=== PATIENT | male | born 1965 | race African-American/Black ===

== ENCOUNTER 2023-12-16 10:53 | Outpatient (CLI) | payer OTHER, SELFPAY | END 2023-12-16 10:54 | disposition home or self-care (01) | LOC: ANHAUDIO 10:56 | PROVIDERS: PCP Otolaryngology; Visit Provider Otolaryngology | DX: H90.3 Sensorineural hearing loss, bilateral (principal) | CPT/HCPCS: 92557; 92567 ==

== ENCOUNTER 2025-01-20 09:00 | Outpatient (CLI) | payer OTHER, SELFPAY ==
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
--- OUTSIDE RECORDS SUMMARY | 2025-01-20 09:11 | XMS_ITS | Encounter Summary ---
Author Organization [facility] Address [address] [place] [address] Care Team Providers Care Dramatic Coach Name Role Phone Irwin Gonzalez MD Primary Care Provider [phone] Encounter Details Date Type Department Care Team (Late st Contact Info) Description 01/30/2023 Telephone [facility] - Neurology [address] [place] [address], Count Includes [facility] [address] Gary Sanchez, EMERGENCY ROOM REGISTERED NURSE-ELECTRONIC SECURITY TECHNICIAN [address] [place] [address] Social History Tobacco Use Types Packs/Day Years Used Date Smoking Tobacco: Every Day Cigarettes Smokeless Tobacco: Never Alcohol Use Standard Drinks/Week Comments Yes 1 (1 standard drink = 0.6 oz pur e alcohol) 1-2 times a month Sex and Gender Information Value Date Recorded Sex Assigned at Not on file 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 NL Reschedule Luisana Guzman, Ok I called his mother and left a message to call Katherine back. Amira From: Megan Stone <[email or web address]> Sent: January 1:53 PM To: Jane, Amira <[email or web address]> Subject: Re: Secure! NL Reschedule Thx for the update. Do they have an emergency contact you could leave a message for them to call? Let Katherine know and you could leave her number if so. [employer] [place] [employer] From: Amira Lara <[email or web address]> Sent: January 10:10:01 AM To: Megan Stone <[email or web address]> Subject: Re: Secure! NL Reschedule Luisana Guzman, Called pt to get them set up but vm not set up and was unable to leave a message, will try again. Amira From: Amira Lara <[email or web address]> Sent: January 9:01 AM To: Megan Stone <[email or web address]> Subject: Re: Secure! NL Reschedule ok will do From: Megan Stone <[email or web address]> Sent: January 8:42 AM To: Oliver Laracy <[email or web address]> Subject: Re: Secure! NL Reschedule Good morning, Yes, the patient needs to be [facility] with [facility]. Daniel hasn't seenthe patient in person in some time and due to her no longer taking these patients and the patient hasn't been seen by a [facility] they should be scheduled with the [facility]. Thanks so much for your help. Megan From: Amira Lara <[email or web address]> Sent: January 8:08 AM To: Megan Stone <[email or web address]> Subject: Re: Secure! NL Reschedule Good morning Megan, I look this pt up and they are scheduled for Sanchez on 02/06 @ 3:30pm. Were you asking me to reschedule them for a different appt. ? Aimra From: Megan Stone <[email or web address]> Sent: Saturday, January 28, 2023 4:52 PM To: Amira Lara <[email or web address]> Subject: Secure! NL Reschedule Hi Amira, Hope all is well with you, miss seeing that smiling face of yours. I need your help rescheduling a NL patient ([id number]), will you please call the patient and schedule in the [facility] for follow up please? Mary reviewed and noticed the patient lost contact with her after the telephone visits and has notbeen seen in office. Let me know when it is completed. Have a wonderful day. Megan documented in this encounter Plan of Treatment Upcoming Encounters Date Type Department Care Team (Late st Contact Info) Description 10/11/2025 3:30 PM CDT Office Visit [facility] - Neurology [address] [place] [address], Count Includes [facility] [place] [id number] Elsy Duff, OLIVE-ELECTRONIC SECURITY TECHNICIAN [address] [place] [address] documented as of this encounter Visit Diagnoses Not on filedocumented in this encounter Care Teams Dramatic Coach Relationship Specialty Start Date End Date Irwin Gonzalez MD [address] [place] [address] PCP - General 05/29/16 documented as of this encounter
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
== END 2025-01-20 09:01 | disposition home or self-care (01) ==
LOC: ANHAUDIO 09:01
PROVIDERS: PCP Otolaryngology; Visit Provider Otolaryngology
DX: H90.3 Sensorineural hearing loss, bilateral (principal); H74.8X1 Other specified disorders of right middle ear and mastoid; H73.891 Other specified disorders of tympanic membrane, right ear; H93.8X9 Other specified disorders of ear, unspecified ear
CPT/HCPCS: 92557; 92567